=== PATIENT | female | born 1970 | race African-American/Black ===

== ENCOUNTER 2021-01-17 13:12 | Inpatient (IN) | payer OTHER ==
[2021-01-17 13:50] VITALS: BMI 25.4
[2021-01-17] MEDS ORDERED: chlordiazePOXIDE HCL 25 MG CAPSULE PO PRN (14:37)
[2021-01-17] MEDS ORDERED: MAGNESIUM HYDROX 2400MG/30ML ORAL SUSPENSION 30 ML CUP PO PRN (14:37)
[2021-01-17] MEDS ORDERED: BISMUTH SUBSALICYLATE 262 MG/15 ML BTL PO PRN (14:37)
[2021-01-17] MEDS ORDERED: MAG HYDROX/AL HYDROX/SIMETH 30 ML UNIT-DOSE CUP PO PRN (14:37)
[2021-01-17] MEDS ORDERED: ONDANSETRON *ODT* 4 MG TABLET SL PRN (14:37)
[2021-01-17] MEDS ORDERED: METHOCARBAMOL 500 MG TABLET PO PRN (14:37)
[2021-01-17] MEDS ORDERED: ACETAMINOPHEN 325 MG TABLET (FP) PO PRN (14:37)
[2021-01-17] MEDS ORDERED: NICOTINE POLACRILEX 2 MG GUM BUC PRN (14:37)
[2021-01-17] MEDS ORDERED: MAGNESIUM CITRATE 300 ML BOTTLE PO PRN (14:37)
[2021-01-17] MEDS ORDERED: MENTHOL/PHENOL 1 EACH UD MM PRN (14:37)
[2021-01-17 17:20] LABS: HEMOGLOBIN 12.5 GM/dL (10.7-15.3); MCH 32.4 pg (25.7-33.7); MCHC 33.8 g/dl (32.0-36.0); MEAN PLT VOLUME 7.9 fl (7.5-11.1); PLATELET COUNT 374 K/MM3 (134-434); RBC 3.86 M/mm3 (3.60-5.2); RDW 14.4 % (11.6-15.6); WHITE BLOOD COUNT 11.3 K/mm3 (4.0-10.0)
[2021-01-17 17:26] LABS: POTASSIUM 4.2 mmol/L (3.5-5.1)
[2021-01-17 17:33] LABS: ALBUMIN 3.7 g/dl (3.4-5.0); CALCIUM 9.4 mg/dL (8.5-10.1)
[2021-01-17 17:34] LABS: BLOOD UREA NITROGEN 21.5 mg/dL (7-18)
[2021-01-17 17:36] LABS: BILIRUBIN,TOTAL 1.1 mg/dL (0.2-1); TOT PROT 7.8 g/dl (6.4-8.2)
[2021-01-17 17:39] LABS: CREATININE 1.3 mg/dL (0.55-1.3)
[2021-01-17] MEDS: chlordiazePOXIDE HCL 25 MG CAPSULE PO SCH ×2 (18:11→22:25)
[2021-01-17] MEDS: hydrOXYzine PAMOATE 25 MG CAPSULE (FP) PO SCH ×2 (18:11→22:25)
[2021-01-17] MEDS: HYDROCHLOROTHIAZIDE 12.5 MG CAPSULE (FP) PO SCH (18:16)
[2021-01-17] MEDS: NICOTINE 7 MG/24 HOURS TOPICAL PATCH TD SCH (18:17)
[2021-01-17 18:21] LABS: HIV INTERPRETATION NEGATIVE (NEGATIVE)
[2021-01-17] MEDS: THIAMINE HCL 100 MG TABLET (FP) PO SCH (22:25)
[2021-01-17] MEDS: MELATONIN 5 MG TABLETS PO SCH (22:25)
[2021-01-18] MEDS: hydrOXYzine PAMOATE 25 MG CAPSULE (FP) PO SCH ×5 (05:38→22:11)
[2021-01-18] MEDS: chlordiazePOXIDE HCL 25 MG CAPSULE PO SCH ×4 (05:38→22:11)
[2021-01-18] MEDS: LISINOPRIL 10 MG TABLET PO SCH (10:25)
[2021-01-18] MEDS: HYDROCHLOROTHIAZIDE 12.5 MG CAPSULE (FP) PO SCH (10:25)
[2021-01-18] MEDS: PRENATAL VITAMINS W/ FOLIC ACID TABLET (FP) PO SCH (10:25)
[2021-01-18] MEDS: NICOTINE 7 MG/24 HOURS TOPICAL PATCH TD SCH (10:26)
[2021-01-18] MEDS ORDERED: TRIMETHOBENZAMIDE HCL 300 MG CAPSULE PO PRN (10:40)
[2021-01-18] MEDS ORDERED: guaiFENesin 200 MG/10 ML 10 ML UNIT-DOSE CUPS PO PRN (10:40)
[2021-01-18] MEDS: ACETAMINOPHEN 325 MG TABLET (FP) PO PRN (18:04)
[2021-01-18] MEDS: MELATONIN 5 MG TABLETS PO SCH (22:11)
[2021-01-18] MEDS: QUEtiapine FUMARATE 100 MG TABLET (FP) PO SCH (22:11)
[2021-01-18] MEDS: THIAMINE HCL 100 MG TABLET (FP) PO SCH (22:11)
[2021-01-18] MEDS: busPIRone HCL 10 MG TABLET (FP) PO SCH (22:11)
[2021-01-18] MEDS: IBUPROFEN 400 MG TABLET (FP) PO PRN (22:49)
[2021-01-19] MEDS: chlordiazePOXIDE HCL 25 MG CAPSULE PO SCH ×4 (06:30→22:40)
[2021-01-19] MEDS: hydrOXYzine PAMOATE 25 MG CAPSULE (FP) PO SCH ×5 (06:30→22:39)
[2021-01-19] MEDS: ACETAMINOPHEN 325 MG TABLET (FP) PO PRN ×2 (06:32→17:42)
[2021-01-19] MEDS: busPIRone HCL 10 MG TABLET (FP) PO SCH ×2 (10:13→22:40)
[2021-01-19] MEDS: PRENATAL VITAMINS W/ FOLIC ACID TABLET (FP) PO SCH (10:13)
[2021-01-19] MEDS: FLUoxetine HCL 20 MG CAPSULE PO SCH (10:14)
[2021-01-19] MEDS: NICOTINE 7 MG/24 HOURS TOPICAL PATCH TD SCH (10:14)
[2021-01-19] MEDS: IBUPROFEN 400 MG TABLET (FP) PO PRN (10:18)
[2021-01-19] MEDS: HYDROCHLOROTHIAZIDE 12.5 MG CAPSULE (FP) PO SCH (11:10)
[2021-01-19] MEDS: LISINOPRIL 10 MG TABLET PO SCH (11:10)
[2021-01-19] MEDS: MELATONIN 5 MG TABLETS PO SCH (22:39)
[2021-01-19] MEDS: THIAMINE HCL 100 MG TABLET (FP) PO SCH (22:40)
[2021-01-19] MEDS: QUEtiapine FUMARATE 100 MG TABLET (FP) PO SCH (22:40)
[2021-01-20] MEDS ORDERED: chlordiazePOXIDE HCL 10 MG CAPSULE PO PRN
[2021-01-20] MEDS: hydrOXYzine PAMOATE 25 MG CAPSULE (FP) PO SCH ×5 (06:59→22:10)
[2021-01-20] MEDS: chlordiazePOXIDE HCL 10 MG CAPSULE PO SCH ×4 (07:00→22:10)
[2021-01-20] MEDS: ACETAMINOPHEN 325 MG TABLET (FP) PO PRN (07:04)
[2021-01-20] MEDS: NICOTINE 7 MG/24 HOURS TOPICAL PATCH TD SCH (10:19)
[2021-01-20] MEDS: LISINOPRIL 10 MG TABLET PO SCH (10:19)
[2021-01-20] MEDS: PRENATAL VITAMINS W/ FOLIC ACID TABLET (FP) PO SCH (10:19)
[2021-01-20] MEDS: HYDROCHLOROTHIAZIDE 12.5 MG CAPSULE (FP) PO SCH (10:19)
[2021-01-20] MEDS: FLUoxetine HCL 20 MG CAPSULE PO SCH (10:19)
[2021-01-20] MEDS: busPIRone HCL 10 MG TABLET (FP) PO SCH ×2 (10:19→22:09)
[2021-01-20] MEDS: MELATONIN 5 MG TABLETS PO SCH (22:09)
[2021-01-20] MEDS: QUEtiapine FUMARATE 100 MG TABLET (FP) PO SCH (22:09)
[2021-01-20] MEDS: THIAMINE HCL 100 MG TABLET (FP) PO SCH (22:10)
[2021-01-21] MEDS: chlordiazePOXIDE HCL 10 MG CAPSULE PO SCH ×2 (06:17→17:36)
[2021-01-21] MEDS: ACETAMINOPHEN 325 MG TABLET (FP) PO PRN (06:18)
[2021-01-21] MEDS: hydrOXYzine PAMOATE 25 MG CAPSULE (FP) PO SCH ×5 (06:18→22:18)
[2021-01-21] MEDS: PRENATAL VITAMINS W/ FOLIC ACID TABLET (FP) PO SCH (10:19)
[2021-01-21] MEDS: HYDROCHLOROTHIAZIDE 12.5 MG CAPSULE (FP) PO SCH (10:20)
[2021-01-21] MEDS: FLUoxetine HCL 20 MG CAPSULE PO SCH (10:20)
[2021-01-21] MEDS: LISINOPRIL 10 MG TABLET PO SCH (10:20)
[2021-01-21] MEDS: busPIRone HCL 10 MG TABLET (FP) PO SCH ×2 (10:20→22:18)
[2021-01-21] MEDS: NICOTINE 7 MG/24 HOURS TOPICAL PATCH TD SCH (10:20)
[2021-01-21] MEDS: IBUPROFEN 400 MG TABLET (FP) PO PRN ×2 (10:20→17:37)
[2021-01-21 12:10] LABS: BASO % 0.8 % (0-2.0); EOS % 4.9 % (0-4.5); HEMATOCRIT 37.9 % (32.4-45.2); HEMOGLOBIN 12.9 GM/dL (10.7-15.3); LYMPH % 30.8 % (8-40); MCH 33.1 pg (25.7-33.7); MCHC 33.9 g/dl (32.0-36.0); MEAN CELL VOLUME 97.6 fl (80-96); MEAN PLT VOLUME 8.3 fl (7.5-11.1); MONO % 8.3 % (3.8-10.2); NEUT % 55.2 % (42.8-82.8); PLATELET COUNT 439 K/MM3 (134-434); RBC 3.88 M/mm3 (3.60-5.2); RDW 14.6 % (11.6-15.6); WHITE BLOOD COUNT 11.5 K/mm3 (4.0-10.0)
[2021-01-21 12:34] LABS: BILIRUBIN,TOTAL 0.2 mg/dL (0.2-1)
[2021-01-21] MEDS: MELATONIN 5 MG TABLETS PO SCH (22:17)
[2021-01-21] MEDS: QUEtiapine FUMARATE 100 MG TABLET (FP) PO SCH (22:18)
[2021-01-21] MEDS: THIAMINE HCL 100 MG TABLET (FP) PO SCH (22:18)
[2021-01-22] MEDS ORDERED: chlordiazePOXIDE HCL 10 MG CAPSULE PO ONE (05:00)
[2021-01-22] MEDS: hydrOXYzine PAMOATE 25 MG CAPSULE (FP) PO SCH ×2 (05:56→09:17)
[2021-01-22] MEDS: IBUPROFEN 400 MG TABLET (FP) PO PRN (05:58)
[2021-01-22 07:14] VITALS: BP 109/72; PULSE 94; TEMP 97.6
[2021-01-22] MEDS: busPIRone HCL 10 MG TABLET (FP) PO SCH (09:15)
[2021-01-22] MEDS: FLUoxetine HCL 20 MG CAPSULE PO SCH (09:15)
[2021-01-22] MEDS: PRENATAL VITAMINS W/ FOLIC ACID TABLET (FP) PO SCH (09:16)
[2021-01-22] MEDS: LISINOPRIL 10 MG TABLET PO SCH (09:16)
[2021-01-22] MEDS: NICOTINE 7 MG/24 HOURS TOPICAL PATCH TD SCH (09:16)
[2021-01-22] MEDS: HYDROCHLOROTHIAZIDE 12.5 MG CAPSULE (FP) PO SCH (09:16)
== END 2021-01-22 09:36 | disposition home or self-care (01) | DRG 775 ==
LOC: YASAS 13:12 → Y3N 13:47
PROVIDERS: ADMIT Allergy & Immunology; ATTEND Allergy & Immunology
PROC: HZ2ZZZZ Detoxification Services for Substance Abuse Treatment (ICD-10-PCS; principal; 2021-01-17)
DX: F10.230 Alcohol dependence with withdrawal, uncomplicated (principal); F12.20 Cannabis dependence, uncomplicated; F17.210 Nicotine dependence, cigarettes, uncomplicated; F10.24 Alcohol dependence with alcohol-induced mood disorder; F41.9 Anxiety disorder, unspecified; F39 Unspecified mood [affective] disorder; D72.829 Elevated white blood cell count, unspecified; I10 Essential (primary) hypertension; R79.89 Other specified abnormal findings of blood chemistry; R94.5 Abnormal results of liver function studies; Z87.19 Personal history of other diseases of the digestive system; Z87.39 Personal history of other diseases of the musculoskeletal system and connective tissue; Z88.0 Allergy status to penicillin; Z91.013 Allergy to seafood; Z59.0 Homelessness
CPT/HCPCS: 36415; 80053; 82247; 83690; 84450; 85025; 85027; 86780; 87389; C9803; U0003

== ENCOUNTER 2021-01-30 10:58 | Inpatient (IN) | payer OTHER ==
[2021-01-30 12:54] VITALS: BMI 27.1
[2021-01-30] MEDS ORDERED: NICOTINE POLACRILEX 2 MG GUM BUC PRN (14:32)
[2021-01-30] MEDS ORDERED: MAGNESIUM HYDROX 2400MG/30ML ORAL SUSPENSION 30 ML CUP PO PRN (14:32)
[2021-01-30] MEDS ORDERED: MAGNESIUM CITRATE 300 ML BOTTLE PO PRN (14:32)
[2021-01-30] MEDS ORDERED: MAG HYDROX/AL HYDROX/SIMETH 30 ML UNIT-DOSE CUP PO PRN (14:32)
[2021-01-30] MEDS ORDERED: P-EPHED 60MG/TRIPROLIDI 2.5MG TABLET PO PRN (14:32)
[2021-01-30] MEDS ORDERED: LOPERAMIDE HCL 2 MG CAPSULE PO PRN (14:32)
[2021-01-30] MEDS ORDERED: guaiFENesin 200 MG/10 ML 10 ML UNIT-DOSE CUPS PO PRN (14:32)
[2021-01-30 15:23] LABS: HEMATOCRIT 35.3 % (32.4-45.2); MCH 32.7 pg (25.7-33.7); MCHC 34.1 g/dl (32.0-36.0); MEAN CELL VOLUME 95.9 fl (80-96); MEAN PLT VOLUME 7.6 fl (7.5-11.1); PLATELET COUNT 518 K/MM3 (134-434); RBC 3.68 M/mm3 (3.60-5.2); RDW 14.5 % (11.6-15.6); WHITE BLOOD COUNT 14.6 K/mm3 (4.0-10.0)
[2021-01-30 15:32] LABS: POTASSIUM 4.5 mmol/L (3.5-5.1)
[2021-01-30 15:43] LABS: ALBUMIN 3.3 g/dl (3.4-5.0); BLOOD UREA NITROGEN 14.4 mg/dL (7-18); CALCIUM 9.6 mg/dL (8.5-10.1)
[2021-01-30 15:46] LABS: CREATININE 0.7 mg/dL (0.55-1.3)
[2021-01-30 15:47] LABS: BILIRUBIN,TOTAL 0.3 mg/dL (0.2-1)
[2021-01-30 15:48] LABS: TOT PROT 7.5 g/dl (6.4-8.2)
[2021-01-30] MEDS ORDERED: hydrOXYzine PAMOATE 25 MG CAPSULE (FP) PO SCH (18:00)
[2021-01-30] MEDS ORDERED: PT OWN MED DRAWER 7, Y5N ONE (19:13)
[2021-01-30] MEDS: THIAMINE HCL 100 MG TABLET (FP) PO SCH (21:16)
[2021-01-30] MEDS: MELATONIN 5 MG TABLETS PO SCH (21:16)
[2021-01-30] MEDS: hydrOXYzine PAMOATE 25 MG CAPSULE (FP) PO PRN (21:17)
[2021-01-30] MEDS: QUEtiapine FUMARATE 100 MG TABLET (FP) PO SCH (21:17)
[2021-01-30] MEDS: busPIRone HCL 10 MG TABLET (FP) PO SCH (21:18)
[2021-01-30] MEDS ORDERED: QUEtiapine FUMARATE 100 MG TABLET (FP) PO SCH (22:00)
[2021-01-30] MEDS ORDERED: busPIRone HCL 10 MG TABLET (FP) PO SCH (22:00)
[2021-01-30] MEDS ORDERED: traZODone HCL 50 MG TABLET (FP) PO SCH (22:00)
[2021-01-31] MEDS: FLUoxetine HCL 20 MG CAPSULE PO SCH (09:41)
[2021-01-31] MEDS: LISINOPRIL 10 MG TABLET PO SCH (09:41)
[2021-01-31] MEDS: PANTOPRAZOLE 40 MG TABLET PO SCH (09:41)
[2021-01-31] MEDS: HYDROCHLOROTHIAZIDE 12.5 MG CAPSULE (FP) PO SCH (09:41)
[2021-01-31] MEDS: NICOTINE 7 MG/24 HOURS TOPICAL PATCH TD SCH (09:42)
[2021-01-31] MEDS: busPIRone HCL 10 MG TABLET (FP) PO SCH ×2 (09:42→21:04)
[2021-01-31] MEDS: PRENATAL VITAMINS W/ FOLIC ACID TABLET (FP) PO SCH (09:42)
[2021-01-31] MEDS ORDERED: PATIENT'S OWN MEDICATION (NON-FORMULARY) (Lisinopril/Hydrochlorothiazide [Lisinopril-Hctz PO SCH (10:00)
[2021-01-31] MEDS ORDERED: FLUoxetine HCL 20 MG CAPSULE PO SCH (10:00)
[2021-01-31 12:59] LABS: URINE APPEARANCE CLEAR; URINE BILIRUBIN NEGATIVE (NEGATIVE); URINE COLOR YELLOW; URINE GLUCOSE (UA) NEGATIVE (NEGATIVE); URINE KETONE NEGATIVE (NEGATIVE); URINE LEUK ESTERASE NEGATIVE (NEGATIVE); URINE NITRITE NEGATIVE (NEGATIVE); URINE PROTEIN NEGATIVE (NEGATIVE); URINE UROBILINOGEN 0.2 mg/dL (0.2-1.0)
[2021-01-31] MEDS: THIAMINE HCL 100 MG TABLET (FP) PO SCH (21:03)
[2021-01-31] MEDS: MELATONIN 5 MG TABLETS PO SCH (21:03)
[2021-01-31] MEDS: IBUPROFEN 400 MG TABLET (FP) PO PRN (21:04)
[2021-01-31] MEDS: QUEtiapine FUMARATE 100 MG TABLET (FP) PO SCH (21:05)
[2021-01-31] MEDS: hydrOXYzine PAMOATE 25 MG CAPSULE (FP) PO PRN (21:05)
[2021-02-01] MEDS ORDERED: PT OWN MED DRAWER 7, Y5N ONE (08:57)
[2021-02-01] MEDS: LISINOPRIL 10 MG TABLET PO SCH (09:51)
[2021-02-01] MEDS: hydrOXYzine PAMOATE 25 MG CAPSULE (FP) PO PRN (09:51)
[2021-02-01] MEDS: FLUoxetine HCL 20 MG CAPSULE PO SCH (09:51)
[2021-02-01] MEDS: PRENATAL VITAMINS W/ FOLIC ACID TABLET (FP) PO SCH (09:52)
[2021-02-01] MEDS: busPIRone HCL 10 MG TABLET (FP) PO SCH (09:52)
[2021-02-01] MEDS: PANTOPRAZOLE 40 MG TABLET PO SCH (09:52)
[2021-02-01] MEDS: HYDROCHLOROTHIAZIDE 12.5 MG CAPSULE (FP) PO SCH (09:53)
[2021-02-01] MEDS: NICOTINE 7 MG/24 HOURS TOPICAL PATCH TD SCH (09:53)
[2021-02-01 10:54] LABS: BASO % 0.9 % (0-2.0); EOS % 3.5 % (0-4.5); HEMATOCRIT 40.2 % (32.4-45.2); HEMOGLOBIN 13.3 GM/dL (10.7-15.3); LYMPH % 18.7 % (8-40); MCH 31.9 pg (25.7-33.7); MEAN CELL VOLUME 96.7 fl (80-96); MEAN PLT VOLUME 7.9 fl (7.5-11.1); MONO % 7.6 % (3.8-10.2); NEUT % 69.3 % (42.8-82.8); PLATELET COUNT 534 K/MM3 (134-434); RBC 4.16 M/mm3 (3.60-5.2); RDW 14.3 % (11.6-15.6); WHITE BLOOD COUNT 15.8 K/mm3 (4.0-10.0)
[2021-02-01] MEDS: hydrOXYzine PAMOATE 50 MG CAPSULE (FP) PO PRN ×2 (12:02→21:23)
[2021-02-01] MEDS: QUEtiapine FUMARATE 50 MG TABLET PO SCH (21:23)
[2021-02-01] MEDS: THIAMINE HCL 100 MG TABLET (FP) PO SCH (21:24)
[2021-02-01] MEDS: MELATONIN 5 MG TABLETS PO SCH (21:24)
[2021-02-02] MEDS: ACETAMINOPHEN 325 MG TABLET (FP) PO PRN (06:29)
[2021-02-02] MEDS: hydrOXYzine PAMOATE 50 MG CAPSULE (FP) PO PRN ×3 (10:33→22:09)
[2021-02-02] MEDS: PRENATAL VITAMINS W/ FOLIC ACID TABLET (FP) PO SCH (10:33)
[2021-02-02] MEDS: HYDROCHLOROTHIAZIDE 12.5 MG CAPSULE (FP) PO SCH (10:34)
[2021-02-02] MEDS: FLUoxetine HCL 20 MG CAPSULE PO SCH (10:34)
[2021-02-02] MEDS: NICOTINE 7 MG/24 HOURS TOPICAL PATCH TD SCH (10:34)
[2021-02-02] MEDS: LISINOPRIL 10 MG TABLET PO SCH (10:34)
[2021-02-02] MEDS: PANTOPRAZOLE 40 MG TABLET PO SCH (10:34)
[2021-02-02 10:48] LABS: PH,URINE 5.5 (5.0-8.0); URINE APPEARANCE Cloudy; URINE BILIRUBIN Negative (NEGATIVE); URINE COLOR Yellow; URINE GLUCOSE (UA) Negative (NEGATIVE); URINE KETONE Negative (NEGATIVE); URINE LEUK ESTERASE Negative (NEGATIVE); URINE NITRITE Negative (NEGATIVE); URINE PROTEIN Negative (NEGATIVE); URINE UROBILINOGEN 0.2 mg/dL (0.2-1.0)
[2021-02-02 10:54] LABS: EPI CELLS 132.5 /uL (0-25.1); HYALINE CASTS 6.42 /uL (0-3.1); URINE BACTERIA 1999.7 /uL (0-1359); URINE RBC 9.1 /uL (0-23.9); URINE WBC 33.3 /uL (0-25.8)
[2021-02-02] MEDS: QUEtiapine FUMARATE 50 MG TABLET PO SCH (22:09)
[2021-02-02] MEDS: MELATONIN 5 MG TABLETS PO SCH (22:10)
[2021-02-02] MEDS: THIAMINE HCL 100 MG TABLET (FP) PO SCH (22:11)
[2021-02-02] MEDS: IBUPROFEN 400 MG TABLET (FP) PO PRN (22:12)
[2021-02-03] MEDS: hydrOXYzine PAMOATE 50 MG CAPSULE (FP) PO PRN ×2 (10:42→21:27)
[2021-02-03] MEDS: PRENATAL VITAMINS W/ FOLIC ACID TABLET (FP) PO SCH (10:42)
[2021-02-03] MEDS: LISINOPRIL 10 MG TABLET PO SCH (10:42)
[2021-02-03] MEDS: FLUoxetine HCL 20 MG CAPSULE PO SCH (10:42)
[2021-02-03] MEDS: PANTOPRAZOLE 40 MG TABLET PO SCH (10:42)
[2021-02-03] MEDS: HYDROCHLOROTHIAZIDE 12.5 MG CAPSULE (FP) PO SCH (10:42)
[2021-02-03] MEDS: NICOTINE 7 MG/24 HOURS TOPICAL PATCH TD SCH (10:43)
[2021-02-03] MEDS: ACETAMINOPHEN 325 MG TABLET (FP) PO PRN ×2 (10:44→21:25)
[2021-02-03] MEDS ORDERED: PT OWN MED DRAWER 7, Y5N ONE ×2 (20:41→21:28)
[2021-02-03] MEDS: QUEtiapine FUMARATE 50 MG TABLET PO SCH (21:26)
[2021-02-03] MEDS: MELATONIN 5 MG TABLETS PO SCH (21:29)
[2021-02-03] MEDS: THIAMINE HCL 100 MG TABLET (FP) PO SCH (21:49)
[2021-02-04] MEDS: hydrOXYzine PAMOATE 50 MG CAPSULE (FP) PO PRN ×3 (06:19→21:48)
[2021-02-04] MEDS: IBUPROFEN 400 MG TABLET (FP) PO PRN (06:20)
[2021-02-04] MEDS: LISINOPRIL 10 MG TABLET PO SCH (10:58)
[2021-02-04] MEDS: PRENATAL VITAMINS W/ FOLIC ACID TABLET (FP) PO SCH (10:58)
[2021-02-04] MEDS: HYDROCHLOROTHIAZIDE 12.5 MG CAPSULE (FP) PO SCH (10:59)
[2021-02-04] MEDS: NICOTINE 7 MG/24 HOURS TOPICAL PATCH TD SCH (10:59)
[2021-02-04] MEDS: PANTOPRAZOLE 40 MG TABLET PO SCH (10:59)
[2021-02-04] MEDS: FLUoxetine HCL 20 MG CAPSULE PO SCH (11:00)
[2021-02-04] MEDS: MINERAL OIL/PETROLAT/WATER TOPICAL CREAM 113 GM JAR TP SCH (14:37)
[2021-02-04] MEDS: BACITRACIN 0.9 GM PACKET TP SCH ×2 (14:37→22:03)
[2021-02-04] MEDS: QUEtiapine FUMARATE 50 MG TABLET PO SCH (21:48)
[2021-02-04] MEDS: ACETAMINOPHEN 325 MG TABLET (FP) PO PRN (21:49)
[2021-02-04] MEDS: MELATONIN 5 MG TABLETS PO SCH (21:49)
[2021-02-04] MEDS: THIAMINE HCL 100 MG TABLET (FP) PO SCH (21:49)
[2021-02-05] MEDS: hydrOXYzine PAMOATE 50 MG CAPSULE (FP) PO PRN ×3 (06:18→21:51)
[2021-02-05] MEDS: PRENATAL VITAMINS W/ FOLIC ACID TABLET (FP) PO SCH (10:40)
[2021-02-05] MEDS: BACITRACIN 0.9 GM PACKET TP SCH (10:41)
[2021-02-05] MEDS: NICOTINE 7 MG/24 HOURS TOPICAL PATCH TD SCH (10:41)
[2021-02-05] MEDS: FLUoxetine HCL 20 MG CAPSULE PO SCH (10:42)
[2021-02-05] MEDS: PANTOPRAZOLE 40 MG TABLET PO SCH (10:42)
[2021-02-05] MEDS: MINERAL OIL/PETROLAT/WATER TOPICAL CREAM 113 GM JAR TP SCH (10:42)
[2021-02-05] MEDS: HYDROCHLOROTHIAZIDE 12.5 MG CAPSULE (FP) PO SCH (12:57)
[2021-02-05] MEDS: LISINOPRIL 10 MG TABLET PO SCH (12:58)
[2021-02-05] MEDS: QUEtiapine FUMARATE 50 MG TABLET PO SCH (21:47)
[2021-02-05] MEDS: IBUPROFEN 400 MG TABLET (FP) PO PRN (21:51)
[2021-02-05] MEDS: MELATONIN 5 MG TABLETS PO SCH (21:53)
[2021-02-05] MEDS: THIAMINE HCL 100 MG TABLET (FP) PO SCH (22:14)
[2021-02-06] MEDS: hydrOXYzine PAMOATE 50 MG CAPSULE (FP) PO PRN ×3 (06:31→18:08)
[2021-02-06] MEDS: FLUoxetine HCL 20 MG CAPSULE PO SCH (10:43)
[2021-02-06] MEDS: PRENATAL VITAMINS W/ FOLIC ACID TABLET (FP) PO SCH (10:43)
[2021-02-06] MEDS: HYDROCHLOROTHIAZIDE 12.5 MG CAPSULE (FP) PO SCH (10:43)
[2021-02-06] MEDS: PANTOPRAZOLE 40 MG TABLET PO SCH (10:44)
[2021-02-06] MEDS: LISINOPRIL 10 MG TABLET PO SCH (10:44)
[2021-02-06] MEDS: NICOTINE 7 MG/24 HOURS TOPICAL PATCH TD SCH (10:44)
[2021-02-06] MEDS: MINERAL OIL/PETROLAT/WATER TOPICAL CREAM 113 GM JAR TP SCH ×2 (10:45→22:04)
[2021-02-06] MEDS: IBUPROFEN 400 MG TABLET (FP) PO PRN (10:46)
[2021-02-06] MEDS: COLLOIDAL OATMEAL 1 BAR EACH TP PRN (18:08)
[2021-02-06] MEDS: QUEtiapine FUMARATE 200 MG TABLET PO SCH (21:21)
[2021-02-06] MEDS: THIAMINE HCL 100 MG TABLET (FP) PO SCH (21:21)
[2021-02-06] MEDS: MELATONIN 5 MG TABLETS PO SCH (21:56)
[2021-02-07] MEDS: hydrOXYzine PAMOATE 50 MG CAPSULE (FP) PO PRN ×3 (06:21→21:08)
[2021-02-07] MEDS: HYDROCHLOROTHIAZIDE 12.5 MG CAPSULE (FP) PO SCH (10:16)
[2021-02-07] MEDS: NICOTINE 7 MG/24 HOURS TOPICAL PATCH TD SCH (10:17)
[2021-02-07] MEDS: FLUoxetine HCL 20 MG CAPSULE PO SCH (10:17)
[2021-02-07] MEDS: LISINOPRIL 10 MG TABLET PO SCH (10:17)
[2021-02-07] MEDS: PRENATAL VITAMINS W/ FOLIC ACID TABLET (FP) PO SCH (10:17)
[2021-02-07] MEDS: MINERAL OIL/PETROLAT/WATER TOPICAL CREAM 113 GM JAR TP SCH ×2 (10:19→21:07)
[2021-02-07] MEDS: PANTOPRAZOLE 40 MG TABLET PO SCH (10:20)
[2021-02-07] MEDS ORDERED: PT OWN MED DRAWER 7, Y5N ONE (20:30)
[2021-02-07] MEDS: MELATONIN 5 MG TABLETS PO SCH (21:08)
[2021-02-07] MEDS: QUEtiapine FUMARATE 200 MG TABLET PO SCH (21:08)
[2021-02-07] MEDS: THIAMINE HCL 100 MG TABLET (FP) PO SCH (21:08)
[2021-02-08] MEDS: IBUPROFEN 400 MG TABLET (FP) PO PRN (06:14)
[2021-02-08] MEDS: hydrOXYzine PAMOATE 50 MG CAPSULE (FP) PO PRN ×3 (06:14→21:08)
[2021-02-08] MEDS: PRENATAL VITAMINS W/ FOLIC ACID TABLET (FP) PO SCH (10:26)
[2021-02-08] MEDS: FLUoxetine HCL 20 MG CAPSULE PO SCH (10:26)
[2021-02-08] MEDS: NICOTINE 7 MG/24 HOURS TOPICAL PATCH TD SCH (10:27)
[2021-02-08] MEDS: PANTOPRAZOLE 40 MG TABLET PO SCH (10:27)
[2021-02-08] MEDS: MINERAL OIL/PETROLAT/WATER TOPICAL CREAM 113 GM JAR TP SCH ×2 (10:27→21:07)
[2021-02-08] MEDS: HYDROCHLOROTHIAZIDE 12.5 MG CAPSULE (FP) PO SCH (10:28)
[2021-02-08] MEDS: COLLOIDAL OATMEAL 1 BAR EACH TP PRN (10:29)
[2021-02-08] MEDS: ACETAMINOPHEN 325 MG TABLET (FP) PO PRN (10:32)
[2021-02-08] MEDS: LISINOPRIL 10 MG TABLET PO SCH (11:19)
[2021-02-08] MEDS: THIAMINE HCL 100 MG TABLET (FP) PO SCH (21:07)
[2021-02-08] MEDS: QUEtiapine FUMARATE 200 MG TABLET PO SCH (21:07)
[2021-02-08] MEDS: MELATONIN 5 MG TABLETS PO SCH (21:08)
[2021-02-09] MEDS: hydrOXYzine PAMOATE 50 MG CAPSULE (FP) PO PRN ×3 (06:15→21:30)
[2021-02-09] MEDS: HYDROCHLOROTHIAZIDE 12.5 MG CAPSULE (FP) PO SCH (10:25)
[2021-02-09] MEDS: NICOTINE 7 MG/24 HOURS TOPICAL PATCH TD SCH (10:25)
[2021-02-09] MEDS: LISINOPRIL 10 MG TABLET PO SCH (10:25)
[2021-02-09] MEDS: PRENATAL VITAMINS W/ FOLIC ACID TABLET (FP) PO SCH (10:25)
[2021-02-09] MEDS: FLUoxetine HCL 20 MG CAPSULE PO SCH (10:25)
[2021-02-09] MEDS: PANTOPRAZOLE 40 MG TABLET PO SCH (10:25)
[2021-02-09] MEDS: MINERAL OIL/PETROLAT/WATER TOPICAL CREAM 113 GM JAR TP SCH ×2 (10:27→22:07)
[2021-02-09] MEDS: MELATONIN 5 MG TABLETS PO SCH (21:30)
[2021-02-09] MEDS: THIAMINE HCL 100 MG TABLET (FP) PO SCH (21:30)
[2021-02-09] MEDS: QUEtiapine FUMARATE 200 MG TABLET PO SCH (21:30)
[2021-02-09] MEDS: ACETAMINOPHEN 325 MG TABLET (FP) PO PRN (21:31)
[2021-02-10] MEDS: hydrOXYzine PAMOATE 50 MG CAPSULE (FP) PO PRN ×3 (06:12→19:00)
[2021-02-10] MEDS: PANTOPRAZOLE 40 MG TABLET PO SCH (10:32)
[2021-02-10] MEDS: HYDROCHLOROTHIAZIDE 12.5 MG CAPSULE (FP) PO SCH (10:32)
[2021-02-10] MEDS: PRENATAL VITAMINS W/ FOLIC ACID TABLET (FP) PO SCH (10:32)
[2021-02-10] MEDS: LISINOPRIL 10 MG TABLET PO SCH (10:32)
[2021-02-10] MEDS: FLUoxetine HCL 20 MG CAPSULE PO SCH (10:32)
[2021-02-10] MEDS: MINERAL OIL/PETROLAT/WATER TOPICAL CREAM 113 GM JAR TP SCH ×2 (10:33→21:48)
[2021-02-10] MEDS: NICOTINE 7 MG/24 HOURS TOPICAL PATCH TD SCH (10:33)
[2021-02-10] MEDS: MELATONIN 5 MG TABLETS PO SCH (21:48)
[2021-02-10] MEDS: QUEtiapine FUMARATE 200 MG TABLET PO SCH (21:48)
[2021-02-10] MEDS: THIAMINE HCL 100 MG TABLET (FP) PO SCH (21:48)
[2021-02-11] MEDS: hydrOXYzine PAMOATE 50 MG CAPSULE (FP) PO PRN ×3 (03:35→16:43)
[2021-02-11] MEDS: MINERAL OIL/PETROLAT/WATER TOPICAL CREAM 113 GM JAR TP SCH ×2 (10:25→21:31)
[2021-02-11] MEDS: NICOTINE 7 MG/24 HOURS TOPICAL PATCH TD SCH (10:25)
[2021-02-11] MEDS: FLUoxetine HCL 20 MG CAPSULE PO SCH (10:25)
[2021-02-11] MEDS: PRENATAL VITAMINS W/ FOLIC ACID TABLET (FP) PO SCH (10:25)
[2021-02-11] MEDS: LISINOPRIL 10 MG TABLET PO SCH (10:25)
[2021-02-11] MEDS: PANTOPRAZOLE 40 MG TABLET PO SCH (10:25)
[2021-02-11] MEDS: HYDROCHLOROTHIAZIDE 12.5 MG CAPSULE (FP) PO SCH (10:26)
[2021-02-11] MEDS: COLLOIDAL OATMEAL 1 BAR EACH TP PRN (10:30)
[2021-02-11] MEDS ORDERED: PT OWN MED DRAWER 7, Y5N ONE ×2 (11:42→20:40)
[2021-02-11] MEDS: QUEtiapine FUMARATE 200 MG TABLET PO SCH (21:24)
[2021-02-11] MEDS: THIAMINE HCL 100 MG TABLET (FP) PO SCH (21:24)
[2021-02-11] MEDS: MELATONIN 5 MG TABLETS PO SCH (21:25)
[2021-02-12] MEDS: hydrOXYzine PAMOATE 50 MG CAPSULE (FP) PO PRN ×3 (06:49→21:53)
[2021-02-12] MEDS ORDERED: PT OWN MED DRAWER 7, Y5N ONE (08:35)
[2021-02-12] MEDS: FLUoxetine HCL 20 MG CAPSULE PO SCH (10:37)
[2021-02-12] MEDS: PRENATAL VITAMINS W/ FOLIC ACID TABLET (FP) PO SCH (10:37)
[2021-02-12] MEDS: LISINOPRIL 10 MG TABLET PO SCH (10:37)
[2021-02-12] MEDS: NICOTINE 7 MG/24 HOURS TOPICAL PATCH TD SCH (10:38)
[2021-02-12] MEDS: PANTOPRAZOLE 40 MG TABLET PO SCH (10:38)
[2021-02-12] MEDS: MINERAL OIL/PETROLAT/WATER TOPICAL CREAM 113 GM JAR TP SCH ×2 (10:38→21:51)
[2021-02-12] MEDS: HYDROCHLOROTHIAZIDE 12.5 MG CAPSULE (FP) PO SCH (10:38)
[2021-02-12] MEDS: ACETAMINOPHEN 325 MG TABLET (FP) PO PRN (10:40)
[2021-02-12] MEDS: MELATONIN 5 MG TABLETS PO SCH (21:50)
[2021-02-12] MEDS: QUEtiapine FUMARATE 200 MG TABLET PO SCH (21:50)
[2021-02-12] MEDS: THIAMINE HCL 100 MG TABLET (FP) PO SCH (21:51)
[2021-02-13] MEDS: hydrOXYzine PAMOATE 50 MG CAPSULE (FP) PO PRN (06:55)
[2021-02-13 08:53] VITALS: TEMP 97.4
[2021-02-13] MEDS: PRENATAL VITAMINS W/ FOLIC ACID TABLET (FP) PO SCH (10:07)
[2021-02-13] MEDS: FLUoxetine HCL 20 MG CAPSULE PO SCH (10:08)
[2021-02-13] MEDS: LISINOPRIL 10 MG TABLET PO SCH (10:08)
[2021-02-13] MEDS: PANTOPRAZOLE 40 MG TABLET PO SCH (10:08)
[2021-02-13] MEDS: MINERAL OIL/PETROLAT/WATER TOPICAL CREAM 113 GM JAR TP SCH (10:09)
[2021-02-13] MEDS: HYDROCHLOROTHIAZIDE 12.5 MG CAPSULE (FP) PO SCH (10:09)
[2021-02-13] MEDS: NICOTINE 7 MG/24 HOURS TOPICAL PATCH TD SCH (10:09)
[2021-02-13 12:36] VITALS: BP 113/71; PULSE 89
== END 2021-02-13 10:15 | disposition home or self-care (01) | DRG 772 ==
LOC: YASAS 10:58 → Y3E 13:50 → Y5N 02-01 16:10
PROVIDERS: ADMIT Allergy & Immunology; ATTEND Allergy & Immunology
PROC: HZ42ZZZ Group Counseling for Substance Abuse Treatment, Cognitive-Behavioral (ICD-10-PCS; principal; 2021-01-30)
DX: F10.20 Alcohol dependence, uncomplicated (principal); F12.20 Cannabis dependence, uncomplicated; F17.210 Nicotine dependence, cigarettes, uncomplicated; F19.280 Other psychoactive substance dependence with psychoactive substance-induced anxiety disorder; F39 Unspecified mood [affective] disorder; F41.9 Anxiety disorder, unspecified; D72.829 Elevated white blood cell count, unspecified; I10 Essential (primary) hypertension; K21.9 Gastro-esophageal reflux disease without esophagitis; Z87.19 Personal history of other diseases of the digestive system; Z87.39 Personal history of other diseases of the musculoskeletal system and connective tissue; Z88.8 Allergy status to other drugs, medicaments and biological substances; Z91.013 Allergy to seafood
CPT/HCPCS: 36415; 71046-TC-FY; 80053; 81003; 81025; 85025; 85027; 86780; 87086; C9803; U0003

== ENCOUNTER 2023-01-26 23:06 | Inpatient (IN) | payer OTHER ==
[2023-01-26] MEDS ORDERED: SODIUM CHLORIDE 1,000 ML IV SCH (23:15)
[2023-01-27 00:12] LABS: BASO % 1.3 % (0-2.0); EOS % 5.2 % (0-4.5); HEMATOCRIT 37.4 % (32.4-45.2); HEMOGLOBIN 12.4 GM/dL (10.7-15.3); LYMPH % 37.6 % (8-40); MCH 32.6 pg (25.7-33.7); MCHC 33.1 g/dl (32.0-36.0); MEAN CELL VOLUME 98.4 fl (80-96); MEAN PLT VOLUME 7.1 fl (7.5-11.1); MONO % 5.4 % (3.8-10.2); NEUT % 50.5 % (42.8-82.8); PLATELET COUNT 510 10^3/uL (134-434); RDW 13.2 % (11.6-15.6); WHITE BLOOD COUNT 12.2 K/mm3 (4.0-10.0)
[2023-01-27 00:20] LABS: INR 1.03 (0.83-1.09)
[2023-01-27 00:22] LABS: ACTIVATED PTT 29.2 SECONDS (25.2-36.5)
[2023-01-27 00:35] LABS: ALBUMIN 3.3 g/dl (3.4-5.0)
[2023-01-27 00:38] LABS: BLOOD UREA NITROGEN 6.4 mg/dL (7-18); CREATININE 0.9 mg/dL (0.55-1.3)
[2023-01-27 00:40] LABS: BILIRUBIN,TOTAL 0.4 mg/dL (0.2-1); TOT PROT 6.9 g/dl (6.4-8.2)
[2023-01-27 01:22] VITALS: BMI 21.7
[2023-01-27] MEDS ORDERED: ALTEPLASE 100MG 100 ML ONE (01:22)
[2023-01-27] MEDS ORDERED: ALTEPLASE BOLUS IVPUSH ONE (01:24)
[2023-01-27] MEDS ORDERED: ALTEPLASE 100 MG/100 ML VIAL IVPB ONE (01:24)
[2023-01-27] MEDS ORDERED: ACETAMINOPHEN INJECTION 100 ML IVPB ONE (02:06)
[2023-01-27] MEDS ORDERED: ACETAMINOPHEN 1000 MG/100 ML BAG IVPB ONE ×2 (02:14→11:52)
[2023-01-27 09:26] LABS: BASO % 0.7 % (0-2.0); EOS % 3.6 % (0-4.5); HEMATOCRIT 35.1 % (32.4-45.2); HEMOGLOBIN 11.8 GM/dL (10.7-15.3); MCH 32.8 pg (25.7-33.7); MCHC 33.8 g/dl (32.0-36.0); MEAN PLT VOLUME 7.2 fl (7.5-11.1); MONO % 4.3 % (3.8-10.2); NEUT % 70.4 % (42.8-82.8); PLATELET COUNT 490 10^3/uL (134-434); RBC 3.62 M/mm3 (3.60-5.2); RDW 13.1 % (11.6-15.6)
[2023-01-27] MEDS ORDERED: PANTOPRAZOLE 40 MG TABLET PO SCH (10:00)
[2023-01-27 10:14] LABS: CALCIUM 9.1 mg/dL (8.5-10.1)
[2023-01-27 10:15] LABS: BLOOD UREA NITROGEN 7.6 mg/dL (7-18); MAGNESIUM 1.7 mg/dL (1.8-2.4)
[2023-01-27] MEDS ORDERED: ACETAMINOPHEN 1000 MG/100 ML BAG IVPB PRN (10:17)
[2023-01-27 10:19] LABS: CREATININE 0.8 mg/dL (0.55-1.3); PHOSPHOROUS 4.8 mg/dL (2.5-4.9)
[2023-01-27 10:21] LABS: BILIRUBIN,TOTAL 0.7 mg/dL (0.2-1); TOT PROT 6.4 g/dl (6.4-8.2)
[2023-01-27] MEDS ORDERED: MAGNESIUM 1GM/D5W - 1 GM/100 ML IVPB IVPB ONE (12:08)
[2023-01-27] MEDS ORDERED: [UNRECOGNIZED DRUG - OTHER] IVPB ONE (12:11)
[2023-01-27] MEDS ORDERED: MAGNESIUM SULFATE IVPB ONE (12:11)
[2023-01-27] MEDS ORDERED: MIRTAZAPINE 15 MG TABLET (FP) PO SCH ×2 (22:00)
[2023-01-28] MEDS ORDERED: ACETAMINOPHEN 1000 MG/100 ML BAG IVPB PRN (05:29)
[2023-01-28 07:20] LABS: BASO % 1.1 % (0-2.0); EOS % 6.8 % (0-4.5); HEMATOCRIT 36.9 % (32.4-45.2); HEMOGLOBIN 12.4 GM/dL (10.7-15.3); MCH 32.9 pg (25.7-33.7); MCHC 33.7 g/dl (32.0-36.0); MEAN CELL VOLUME 97.7 fl (80-96); MEAN PLT VOLUME 7.5 fl (7.5-11.1); NEUT % 49.1 % (42.8-82.8); PLATELET COUNT 512 10^3/uL (134-434); RBC 3.78 M/mm3 (3.60-5.2); WHITE BLOOD COUNT 11.1 K/mm3 (4.0-10.0)
[2023-01-28 07:47] LABS: ALBUMIN 3.4 g/dl (3.4-5.0); BLOOD UREA NITROGEN 9.1 mg/dL (7-18); CALCIUM 9.3 mg/dL (8.5-10.1)
[2023-01-28 07:50] LABS: CREATININE 0.9 mg/dL (0.55-1.3)
[2023-01-28 07:52] LABS: BILIRUBIN,TOTAL 0.5 mg/dL (0.2-1); TOT PROT 7.1 g/dl (6.4-8.2)
[2023-01-28] MEDS ORDERED: PANTOPRAZOLE 40 MG TABLET PO SCH (10:00)
[2023-01-28] MEDS ORDERED: LISINOPRIL 10 MG TABLET PO SCH (10:00)
[2023-01-28 18:52] VITALS: BP 128/93; PULSE 72; RESP 18; TEMP 98.3
[2023-01-28] MEDS ORDERED: MIRTAZAPINE 15 MG TABLET (FP) PO SCH (22:00)
[2023-01-28] MEDS ORDERED: PRAZOSIN HCL 1 MG CAPSULE PO SCH (22:00)
== END 2023-01-28 20:07 | disposition home or self-care (01) | DRG 45 ==
LOC: JER 23:06 → JERBED 01-27 02:13 → JICU 01-27 03:26 → J4S 01-28 05:20
PROVIDERS: ADMIT Internal Medicine Pulmonary Disease; ATTEND Internal Medicine
DX: I63.89 Other cerebral infarction (principal); I10 Essential (primary) hypertension; F10.10 Alcohol abuse, uncomplicated; F12.90 Cannabis use, unspecified, uncomplicated; R51.9 Headache, unspecified; D75.839 Thrombocytosis, unspecified; R29.703 NIHSS score 3; K86.2 Cyst of pancreas; F41.8 Other specified anxiety disorders; M54.50 Low back pain, unspecified; F17.210 Nicotine dependence, cigarettes, uncomplicated; F19.980 Other psychoactive substance use, unspecified with psychoactive substance-induced anxiety disorder; R47.01 Aphasia
CPT/HCPCS: 0241U-QW; 36415; 70450-TC; 70496-TC; 70498-TC; 70551-TC; 71045-TC-FY; 80053; 80061; 80307; 82550; 83036; 83735; 84100; 84484; 85025; 85610; 85730; 86850; 86900; 86901; 93005; 93010; 93306-TC; 93880-TC; 97116-GP; 97161-GP; 99291; 99292; J2997; Q9967

== ENCOUNTER 2023-03-31 23:53 | Emergency (ER) | payer OTHER ==
[2023-03-31 23:57] VITALS: BP 132/90; PULSE 100; RESP 18; TEMP 97.6; BMI 20.5
== END 2023-04-01 01:00 | disposition left against medical advice (07) ==
LOC: JER 23:53
DX: R22.0 Localized swelling, mass and lump, head (principal); R11.10 Vomiting, unspecified; Y09 Assault by unspecified means
CPT/HCPCS: 99281-25

== ENCOUNTER 2023-04-16 06:19 | Emergency (ER) | payer OTHER ==
[2023-04-16 06:36] VITALS: BP 122/84; PULSE 83; RESP 18; TEMP 98; BMI 20.5
== END 2023-04-16 08:49 | disposition home or self-care (01) ==
LOC: JER 06:19 → JERFT 06:19
DX: R22.0 Localized swelling, mass and lump, head (principal); R51.9 Headache, unspecified; Y04.2XXA Assault by strike against or bumped into by another person, initial encounter
CPT/HCPCS: 70486-TC; 99284-25